=== PATIENT | male | born 1980 | race Two or more races ===

== ENCOUNTER 2020-05-18 08:30 | Emergency (ER) | payer SELFPAY ==
[~2020-05-18] VITALS: Ht 182.9 cm; Wt 170.6 kg
[2020-05-18 08:52] VITALS: BP 149/89
== END 2020-05-18 10:30 | disposition home or self-care (01) ==
LOC: ER 08:30
DX: J40 Bronchitis, not specified as acute or chronic (principal); F41.9 Anxiety disorder, unspecified; I10 Essential (primary) hypertension; Z20.828 Contact with and (suspected) exposure to other viral communicable diseases
CPT/HCPCS: 36415; 71045; 87426; 93005